=== PATIENT | male | born 1980 | race Caucasian/White ===

== ENCOUNTER 2020-07-19 18:38 | Emergency (ER) | payer OTHER | END 2020-07-19 21:50 | disposition home or self-care (01) | LOC: ER1 18:38 | DX: S29.011A Strain of muscle and tendon of front wall of thorax, initial encounter (principal); S70.12XA Contusion of left thigh, initial encounter; S80.12XA Contusion of left lower leg, initial encounter; S70.02XA Contusion of left hip, initial encounter; V86.59XA Driver of other special all-terrain or other off-road motor vehicle injured in nontraffic accident, initial encounter; F17.290 Nicotine dependence, other tobacco product, uncomplicated; Y92.410 Unspecified street and highway as the place of occurrence of the external cause; Z23 Encounter for immunization | CPT/HCPCS: 71260; 72170; 73552; 73590; 90471; 90715; 99284; Q9967 ==

== ENCOUNTER → 2020-10-30 | Outpatient (CLI) | payer OTHER ==
[2020-10-30 15:37] LABS: HEMOGLOBIN 15.4 gm/dl (14.0-17.5); RED BLOOD COUNT 5.07 M/UL (4.20-5.50); WHITE BLOOD COUNT 9.1 K/UL (4.5-11.0)
[2020-10-30 16:02] LABS: BUN/CREATININE RATIO 7 (0-10)
[2020-10-31 08:15] LABS: THYROXINE (T4) 9.6 ug/dL (4.5-12.0)
== END ==
LOC: LAB 14:22
PROVIDERS: Nurse Practitioner Family
DX: Z13.1 Encounter for screening for diabetes mellitus (principal); Z13.220 Encounter for screening for lipoid disorders; R53.82 Chronic fatigue, unspecified
CPT/HCPCS: 80053; 80061; 81001; 83036; 84436; 84443; 84480; 85025